=== PATIENT | male | born 1965 | race Caucasian/White ===

== ENCOUNTER 2016-05-31 07:24 | Inpatient (IN) | payer BC ==
[~2016-05-31] VITALS: Ht 193 cm; Wt 114.0 kg
[2016-05-31] MEDS ORDERED: SODIUM CHLORIDE 0.9% 1,000 ML IV ONE (07:52)
[2016-05-31] MEDS ORDERED: ASPIRIN 81 MG TABLET CHEW PO ONE (08:00)
[2016-05-31] MEDS ORDERED: MORPHINE SULFATE 4 MG/ML, 1ML IVPush PRN ×3 (08:00→13:30)
[2016-05-31] MEDS ORDERED: KETOROLAC 30 MG/1 ML IVPush ONE (08:00)
[2016-05-31] MEDS ORDERED: SODIUM CHLORIDE 0.9% 1,000ML IVBOLUS ONE (08:00)
[2016-05-31] MEDS ORDERED: ONDANSETRON 2MG/ML, 2ML IVPush ONE (08:00)
[2016-05-31 08:27] LABS: HEMOGLOBIN 14.9 g/dL (13.7-18.0)
[2016-05-31 08:40] LABS: ASPARTATE AMINO TRANSFERASE 27 U/L (15-37); BLOOD UREA NITROGEN 11 mg/dL (7-18)
[2016-05-31 08:46] LABS: IS PT STATUS REG ER OR PRE ER? YES
[2016-05-31] MEDS ORDERED: KETOROLAC 30 MG/1 ML ONE (08:46)
[2016-05-31] MEDS ORDERED: MORPHINE SULFATE 4 MG/ML, 1ML ONE ×2 (08:46→11:14)
[2016-05-31] MEDS ORDERED: ONDANSETRON 2MG/ML, 2ML ONE (08:47)
[2016-05-31] MEDS ORDERED: ASPIRIN 81 MG TABLET CHEW ONE ×2 (08:47)
[2016-05-31] MEDS ORDERED: PIPERACILLIN/TAZO/PMX 3.375GM 50 ML IV ONE (10:30)
[2016-05-31] MEDS ORDERED: PIPERACILLIN/TAZO/PMX 3.375GM 50 ML ONE (10:40)
[2016-05-31] MEDS ORDERED: ALPR0.25 PO (10:53)
[2016-05-31] MEDS ORDERED: LEVO750T26 PO (10:59)
[2016-05-31] MEDS ORDERED: SERT50TA PO (10:59)
[2016-05-31] MEDS ORDERED: AZIT-14 PO (10:59)
[2016-05-31] MEDS ORDERED: VITA200C7 PO (10:59)
[2016-05-31] MEDS ORDERED: ZOLP-413 PO (10:59)
[2016-05-31] MEDS ORDERED: LITH300T22 PO (10:59)
[2016-05-31] MEDS ORDERED: AZEL23SP NAS (10:59)
[2016-05-31] MEDS ORDERED: OMEG-120 PO (10:59)
[2016-05-31] MEDS ORDERED: QUET100T4 PO (10:59)
[2016-05-31] MEDS ORDERED: ATOR10TA9 PO (10:59)
[2016-05-31] MEDS ORDERED: CHOL400C11 PO (10:59)
[2016-05-31] MEDS ORDERED: DOXY100T9 PO (10:59)
[2016-05-31 12:14] VITALS: BP 130/84
[2016-05-31] MEDS ORDERED: LEVO50TA5 PO (12:24)
[2016-05-31] MEDS ORDERED: LITH300T PO ×2 (12:24)
[2016-05-31] MEDS ORDERED: QUET400T6 PO (12:24)
[2016-05-31] MEDS ORDERED: LITHIUM CARBONATE 300 MG CAPSULE PO SCH ×2 (12:30→21:00)
[2016-05-31] MEDS ORDERED: ENALAPRILAT 1.25 MG/ML, 2ML IVPush PRN ×2 (13:30→21:51)
[2016-05-31] MEDS ORDERED: ONDANSETRON 2MG/ML, 2ML IVP PRN (13:30)
[2016-05-31] MEDS ORDERED: BISACODYL 10 MG SUPP PR PRN (13:30)
[2016-05-31] MEDS ORDERED: POLYETHYLENE GLYCOL 17 GM PACKET PO PRN (13:30)
[2016-05-31] MEDS: MORPHINE SULFATE 4 MG/ML, 1ML IVPush PRN ×2 (13:31→20:40)
[2016-05-31] MEDS ORDERED: OMNIPAQUE 350 MG/ML, 100ML BOTTLE ONE (13:39)
[2016-05-31] MEDS: LITHIUM CARBONATE 300 MG TABLET.ER HOMEMEDPO SCH ×2 (14:00→20:38)
[2016-05-31] MEDS ORDERED: LITHIUM CARBONATE 300 MG TABLET.ER PO ONE (14:00)
[2016-05-31 14:17] VITALS: BP 131/74
[2016-05-31] MEDS: ACETAMINOPHEN 325 MG TABLET PO PRN (14:26)
[2016-05-31] MEDS: SODIUM CHLORIDE 0.9% 1,000 ML IV SCH ×2 (14:26→20:30)
[2016-05-31] MEDS: HEPARIN 5,000 UNITS/ML, 1ML SQ SCH ×2 (14:26→20:37)
[2016-05-31] MEDS: AZITHROMYCIN 500 MG in SODIUM CHLORIDE 0.9% 250 ML IV SCH (14:30)
[2016-05-31] MEDS ORDERED: ZOLP5TAB6 PO (14:38)
[2016-05-31] MEDS ORDERED: [UNRECOGNIZED DRUG - REMARK] MC SCH (15:30)
[2016-05-31] MEDS: CEFTRIAXONE PMX 1GM/50ML 50 ML IV SCH (16:07)
[2016-05-31 20:00] VITALS: BP 131/80
[2016-05-31] MEDS: AZELASTINE NAS SCH (20:25)
[2016-05-31] MEDS: FLUTICASONE NAS SCH (20:25)
[2016-05-31] MEDS: GUAIFENESIN ER 600 MG TABLET PO SCH (20:28)
[2016-05-31] MEDS: ZOLPIDEM 10MG TABLET HOMEMEDPO SCH (20:37)
[2016-05-31] MEDS: SEROQUEL 400 MG HOMEMEDPO SCH (20:38)
[2016-05-31] MEDS ORDERED: QUETIAPINE FUMARATE 400 MG PO SCH (21:00)
[2016-05-31] MEDS ORDERED: QUETIAPINE 100MG TABLET PO SCH (21:00)
[2016-05-31] MEDS ORDERED: ATORVASTATIN 10 MG TABLET PO SCH (21:00)
[2016-05-31] MEDS ORDERED: QUETIAPINE 200 MG TABLET PO SCH (21:00)
[2016-06-01 01:28] VITALS: BP 117/71
[2016-06-01] MEDS: CEFTRIAXONE PMX 1GM/50ML 50 ML IV SCH ×2 (02:38→17:30)
[2016-06-01] MEDS: MORPHINE SULFATE 4 MG/ML, 1ML IVPush PRN (04:52)
[2016-06-01] MEDS: HEPARIN 5,000 UNITS/ML, 1ML SQ SCH ×3 (04:57→21:23)
[2016-06-01 05:26] LABS: HEMOGLOBIN 12.3 g/dL (13.7-18.0)
[2016-06-01 05:35] LABS: ASPARTATE AMINO TRANSFERASE 27 U/L (15-37); BLOOD UREA NITROGEN 9 mg/dL (7-18)
[2016-06-01 06:49] VITALS: BP 109/64
[2016-06-01] MEDS: GUAIFENESIN ER 600 MG TABLET PO SCH ×2 (08:45→21:22)
[2016-06-01] MEDS: SENNA/DOCUSATE TABLET PO SCH (08:46)
[2016-06-01] MEDS: FLUTICASONE NAS SCH ×2 (08:46→21:00)
[2016-06-01] MEDS: AZELASTINE NAS SCH ×2 (08:46→21:00)
[2016-06-01] MEDS: CHOLECALCIFEROL 1,000 UNIT TABLET PO SCH (08:46)
[2016-06-01] MEDS: SERTRALINE 50MG TABLET PO SCH (08:48)
[2016-06-01] MEDS: LEVOTHYROXINE 50 MCG TABLET PO SCH (08:49)
[2016-06-01] MEDS: LITHIUM CARBONATE 300 MG TABLET.ER HOMEMEDPO SCH ×3 (08:53→21:00)
[2016-06-01] MEDS: ACETAMINOPHEN 325 MG TABLET PO PRN (09:03)
[2016-06-01] MEDS: OXYcodone IR 5MG TABLET PO PRN ×2 (11:44→21:23)
[2016-06-01 13:16] VITALS: BP 129/73
[2016-06-01] MEDS ORDERED: KETOROLAC 30 MG/1 ML IVPush PRN (14:00)
[2016-06-01] MEDS: AZITHROMYCIN 500 MG in SODIUM CHLORIDE 0.9% 250 ML IV SCH (14:30)
[2016-06-01 20:30] VITALS: BP_SYST 141; BP_SYST 150; BP_DIAS 79; BP_DIAS 81
[2016-06-01] MEDS: ZOLPIDEM 10MG TABLET HOMEMEDPO SCH (21:00)
[2016-06-01] MEDS: SEROQUEL 400 MG HOMEMEDPO SCH (21:00)
[2016-06-02 01:39] VITALS: BP 127/82
[2016-06-02] MEDS: CEFTRIAXONE PMX 1GM/50ML 50 ML IV SCH (03:29)
[2016-06-02] MEDS: OXYcodone IR 5MG TABLET PO PRN (03:38)
[2016-06-02] MEDS: HEPARIN 5,000 UNITS/ML, 1ML SQ SCH (05:39)
[2016-06-02 07:26] VITALS: BP 138/87
[2016-06-02] MEDS ORDERED: KETO10TA PO (08:09)
[2016-06-02] MEDS ORDERED: CEFD300C2 PO (08:09)
[2016-06-02] MEDS ORDERED: AMOX1TAB64 PO (08:09)
[2016-06-02] MEDS ORDERED: ALBU8.5H3 INH (08:09)
[2016-06-02] MEDS: LITHIUM CARBONATE 300 MG TABLET.ER HOMEMEDPO SCH (08:15)
[2016-06-02] MEDS: SENNA/DOCUSATE TABLET PO SCH (08:16)
[2016-06-02] MEDS: LEVOTHYROXINE 50 MCG TABLET PO SCH (08:16)
[2016-06-02] MEDS: CHOLECALCIFEROL 1,000 UNIT TABLET PO SCH (08:17)
[2016-06-02] MEDS: GUAIFENESIN ER 600 MG TABLET PO SCH (08:17)
[2016-06-02] MEDS: SERTRALINE 50MG TABLET PO SCH (08:17)
[2016-06-02] MEDS: AZELASTINE NAS SCH (08:22)
[2016-06-02] MEDS: FLUTICASONE NAS SCH (08:22)
== END 2016-06-02 11:36 | disposition home or self-care (01) | DRG 871 ==
LOC: ED 10:17 → EDIP 10:29 → UNDOADMIN 10:29 → 4EST 11:58 → DCLOUNGE 06-02 11:06
PROVIDERS: ADMIT Internal Medicine
PROC: 0T9B70Z Drainage of Bladder with Drainage Device, Via Natural or Artificial Opening (ICD-10-PCS; principal; 2016-05-31)
DX: A41.9 Sepsis, unspecified organism (principal); J18.9 Pneumonia, unspecified organism; E03.9 Hypothyroidism, unspecified; F31.9 Bipolar disorder, unspecified; F41.9 Anxiety disorder, unspecified; R51 Headache; D64.9 Anemia, unspecified; Z90.49 Acquired absence of other specified parts of digestive tract; Z87.891 Personal history of nicotine dependence; Z79.899 Other long term (current) drug therapy; Z80.41 Family history of malignant neoplasm of ovary; Z83.3 Family history of diabetes mellitus
CPT/HCPCS: 36415; 71010; 71275; 76700; 80053; 80061; 81003; 83036; 83605; 83690; 83735; 83880; 84439; 84443; 84484; 85025; 87040; 93005; 96361; 96374; 96375; 96376; J0456; J0696; J1644; J1885; J2405; J2543; Q9967; J7030; J7050

== ENCOUNTER → 2016-10-30 | Outpatient (CLI) | payer BC ==
[~2016-10-30] MED LIST: ALBU8.5H8 INH; ALPR0.25 PO; AMOX1TAB64 PO; ATOR10TA9 PO; AZEL23SP NAS; AZIT250T89 PO; CEFD300C37 PO; CHOL400C11 PO; DOXY100C15 PO; DOXY100T10 PO; DOXY100T9 PO; HYDR-3240 PO; IBUP-1222 PO; KETO10TA PO; LEVO50TA5 PO; LEVO750T26 PO; LEVO75TA5 PO; LITH300T22 PO; LITH300T30 PO; OMEG-120 PO; QUET100T4 PO; QUET400T6 PO; SERT50TA PO; VITA200C7 PO; ZOLP-413 PO; ZOLP5TAB6 PO
== END ==
LOC: STAR 14:57
PROVIDERS: ATTEND Thoracic Surgery (Cardiothoracic Vascular Surgery)
DX: Z02.9 Encounter for administrative examinations, unspecified (principal)

== ENCOUNTER 2016-11-04 12:00 | Day surgery (SDC) | payer BC ==
[~2016-11-04] VITALS: Ht 193 cm; Wt 108.1 kg
[~2016-11-04 12:00] MED LIST changes: +BUPIVACAINE/PF 0.5% ONE; -HYDR-3240 PO
[2016-11-04] MEDS ORDERED: LACTATED RINGERS 1,000 ML IV SCH ×2 (12:36→16:46)
[2016-11-04 12:37] VITALS: BP 143/89
[2016-11-04] MEDS ORDERED: LIDOCAINE 1%, 2ML SQ PRN (13:00)
[2016-11-04] MEDS ORDERED: FENTANYL PF 100 MCG/2ML ONE ×4 (14:28→16:50)
[2016-11-04] MEDS ORDERED: MIDAZOLAM 1 MG/ML, 2ML ONE (14:28)
[2016-11-04] MEDS ORDERED: PROPOFOL 10 MG/ML, 20ML ONE (15:20)
[2016-11-04] MEDS ORDERED: GLYCOPYRROLATE 0.2MG/1ML ONE (15:20)
[2016-11-04] MEDS ORDERED: ROCURONIUM 10 MG/ML ONE ×3 (15:20)
[2016-11-04] MEDS ORDERED: CEFOTETAN 2 GM ONE (15:20)
[2016-11-04] MEDS ORDERED: LABETALOL 5MG/ML 40ML VIAL ONE (15:20)
[2016-11-04] MEDS ORDERED: NEOSTIGMINE 1 MG/ML, 10ML ONE (15:20)
[2016-11-04] MEDS ORDERED: hydrALAzine 20 MG/ML, 1ML IV PRN (15:30)
[2016-11-04] MEDS ORDERED: MEPERIDINE/PF 25MG/0.5ML IVPush PRN (15:30)
[2016-11-04] MEDS ORDERED: ONDANSETRON 2MG/ML, 2ML IVPush PRN ×2 (15:30→17:00)
[2016-11-04] MEDS ORDERED: OXYcodone 5 MG/5 ML ORAL.SOL UDC PO PRN (15:30)
[2016-11-04] MEDS ORDERED: PROMETHAZINE 25 MG/ML, 1ML IV PRN (15:30)
[2016-11-04] MEDS ORDERED: LABETALOL 5MG/ML, 20ML IV PRN (15:30)
[2016-11-04] MEDS ORDERED: HYDROmorphone 1 MG/ML, 1ML IV PRN (15:30)
[2016-11-04] MEDS ORDERED: ACETAMINOPHEN 650 MG/20.3 ML UDC ONE (16:50)
[2016-11-04] MEDS ORDERED: OXYcodone 5 MG/5 ML ORAL.SOL UDC ONE (16:50)
[2016-11-04] MEDS ORDERED: morphine SULFATE 10 MG/ML, 1ML IVPush PRN (17:00)
[2016-11-04] MEDS ORDERED: HYDROcodone/APAP 5/325 TABLET PO PRN (17:00)
[2016-11-04] MEDS ORDERED: ONDANSETRON 2MG/ML, 2ML ONE (17:00)
[2016-11-04] MEDS: FENTANYL PF 100 MCG/2ML IV PRN ×3 (17:01→17:33)
[2016-11-04] MEDS ORDERED: HYDROmorphone 2 MG/ML, 1ML ONE (17:33)
[2016-11-04] MEDS ORDERED: PROMETHAZINE 25 MG/ML, 1ML ONE (17:52)
[2016-11-04 20:00] VITALS: BP 121/79
[2016-11-04] MEDS ORDERED: HYDR-3240 PO (22:19)
== END 2016-11-04 23:51 | disposition home or self-care (01) ==
LOC: OUT 12:00 → 4NOR 18:28 → OUT 23:51
PROVIDERS: ATTEND Thoracic Surgery (Cardiothoracic Vascular Surgery)
DX: K80.10 Calculus of gallbladder with chronic cholecystitis without obstruction (principal); K40.20 Bilateral inguinal hernia, without obstruction or gangrene, not specified as recurrent; D17.6 Benign lipomatous neoplasm of spermatic cord; F31.9 Bipolar disorder, unspecified; F17.200 Nicotine dependence, unspecified, uncomplicated; Z98.890 Other specified postprocedural states; Z72.89 Other problems related to lifestyle
CPT/HCPCS: 47562; 49650; 88304; C1727; C1781; J1170; J2250; J2405; J2550; J2704; J2710; J3010; J3490; J7120; S0074